=== PATIENT | female | born 1970 | race Caucasian/White ===

== ENCOUNTER → 2016-05-29 | Outpatient (CLI) | payer OTHER ==
--- NOTE | 2016-05-29 08:36 | MA ---
Screening Digital Mammogram With iCAD Analysis Clinical Indications: Routine screening. Technique: Standard cephalocaudal and mediolateral oblique projections were obtained. This examinatio n was processed by the iCAD computer aided detection system. Comparison: January 2015, August 2013, July 2012, June 2009. Breast density: Type C; Heterogeneously dense. Findings: CAD was reviewed. No masses, suspicious calcifications or other signs of malignancy are id entified. There has been no significant change in the appearance of either breast. Impression: Negative mammogram. BI-RADS 1. Recommendation: Annual screening as long as physical examination is negative in this patient with het erogeneously dense breasts. [facility] will send a result letter to the patient. Dense breast parenchyma diminishes mammographic sensitivity. Negative mammography should not preclude additional workup of a clinically suspicious finding. The patient's information is entered into a reminder system with a target due date for her next mammo gram.
== END ==
LOC: CIMAGING 07:14
DX: Z12.31 Encounter for screening mammogram for malignant neoplasm of breast (principal)

== ENCOUNTER → 2017-06-19 | Outpatient (CLI) | payer OTHER | LOC: CIMAGING 07:47 | PROVIDERS: ATTEND Obstetrics & Gynecology Gynecology | DX: Z12.31 Encounter for screening mammogram for malignant neoplasm of breast (principal) ==

== ENCOUNTER → 2018-07-25 | Outpatient (CLI) | payer OTHER | LOC: CIMAGING 07:11 | PROVIDERS: ATTEND Internal Medicine | DX: Z12.31 Encounter for screening mammogram for malignant neoplasm of breast (principal) ==